=== PATIENT | female | born 1965 | race Caucasian/White ===

== ENCOUNTER 2016-12-21 13:58 | Emergency (ER) | payer OTHER ==
[~2016-12-21] VITALS: Ht 157.5 cm; Wt 128.6 kg
[2016-12-21] MEDS ORDERED: MUSCLE RELAXANT (15:45)
[2016-12-21] MEDS ORDERED: MED FOR ARTHRITIS (15:46)
[2016-12-21] MEDS ORDERED: MOTRIN800 MG PO (18:55)
[2016-12-21 20:26] VITALS: BP 143/88
== END 2016-12-21 20:27 | disposition home or self-care (01) ==
LOC: EME 13:58
DX: M79.651 Pain in right thigh (principal)
CPT/HCPCS: 93971; 99281; 99283